=== PATIENT | male | born 1955 | race Caucasian/White ===

== ENCOUNTER 2016-06-25 08:48 | Inpatient (IN) | payer MEDICAID ==
[~2016-06-25] VITALS: Ht 182.9 cm; Wt 87.5 kg
--- NOTE | 2016-06-25 09:10 | NUR ---
60 Y/O MALE AMBULATED TO TRIAGE REPORTING STERNAL CHEST PAIN, BILATERAL AXILLARY PAIN AND HEAD THAT BEGAN THIS AM 0600. BREATHING EVEN AND UNLABORED. A/O X4. EKG COMPLETED AND SHOWN TO DR UREÑA. WAITING IN LOBBY FOR AVAILABLE BED.
--- NOTE | 2016-06-25 10:07 | NUR ---
PATIENT HERE FOR CHEST PAIN LEFT SIDED THAT STARTED THIS MORNING AT 0600 SHARP IN NATURE AND NONPROVOKED. CLAIMS PAIN UPON ARRIVAL TO ED HAS SUBSIDED. NO HX OF CHEST PAIN. NO RECENT ILLNESS. PATIENT TOOK 3 TYLENOLS THIS MORNING FOR THE PAIN. PATIENT IS ALERT AND ORIENTED UPON ARRIVAL WITH 0 S/S DISTRESS NOTED. PATIENT RECEIVED EKG IN TRIAGE. CONNECTED TO [employer]LE PRODUCERS AND DR UREÑA AT BEDSIDE FOR EVAL.
[2016-06-25 10:15] LABS: BASOPHIL % 0.5 % (0-2); PLATELET COUNT 289 x10^3mcL (130-400); RED CELL DISTRIBUTION WIDTH 13.1 % (11.5-14.5)
[2016-06-25 10:20] LABS: CALCIUM 9.2 mg/dL (8.5-10.1); CARBON DIOXIDE 28.8 mmol/L (21-32); CHLORIDE SERUM 100 mmol/L (98-107); CREATININE SERUM 0.8 mg/dL (0.7-1.3); GFR1 > 60 mL/min; GLUCOSE SERUM 190 mg/dL (74-106); POTASSIUM SERUM 4.4 mmol/L (3.5-5.1); SODIUM SERUM 137 mmol/L (136-145)
[2016-06-25 10:28] LABS: ALBUMIN 4.5 g/dL (3.4-5.0); ALKALINE PHOSPHATASE 92 U/L (46-116); ALT/SGPT 49 U/L (16-63); AST/SGOT 30 U/L (15-37); TOTAL PROTEIN, SERUM 7.9 g/dL (6.4-8.2)
[2016-06-25 10:37] LABS: AMPHETAMINE QUAL UR NONE DETECTED (NEG <=1000)
--- NOTE | 2016-06-25 11:37 | NUR ---
REPORT GIVEN TO JOSE VERDUGO ON TELE FLOOR
--- NOTE | 2016-06-25 11:37 | NUR ---
WAITING FOR DR CUEVAS WRITTEN ORDERS FOR HEPARIN IN ORDER TO GIVE. ORDER SYSTEM NOT WORKING AT THIS TIME.
--- NOTE | 2016-06-25 11:50 | NUR ---
PATIENT GIVEN [address] CUEVAS ORDER. PROTOCOL STATES [address] UREÑA FOR 5000.
--- NOTE | 2016-06-25 12:00 | NUR ---
HEPARIN BOLUS AND DRIP STARTED AND INFUSING AT THIS TIME
--- NOTE | 2016-06-25 12:29 | NUR ---
WAITING FOR TRANSFER TO TELE AT THIS TIME. PATIENT DENIES PAIN. VITALS STABLE AND 0 S/S DISTRESS NOTED
[2016-06-25 12:36] LABS: FREE T4 0.99 ng/dL (0.76-1.46); FREE THYROXINE INDEX 2.5 ug/dL (1.4-4.5); T4(THYROXINE) 8.4 ug/dL (4.7-13.3)
[2016-06-25 12:40] LABS: T3 TOTAL 1.19 ng/mL
--- NOTE | 2016-06-25 12:58 | NUR ---
RECEIVED PATIENT FROM ER AT THIS TIME. PATIENT ARRIVED VIA GURNEY, ESCORTED BY RN. PATIENT ALERT AND OX4. TELE # 11 PLACED. DENIES CHEST PAIN AT THIS TIME (0/10). ON ROOM AIR, NO RESPIRATORY DISTRESS NOTED. IV TO RAC INTACT AND PATENT. IV FLUIDS INITIATED AT 75 ML/HR. HEPARIN DRIP RESUMED AT 1080 UNITS/HR. INSTRUCTED ON USE OF CALL LIGHT. WILL CONTINUE TO MONITOR.
[2016-06-25 13:31] VITALS: BP 139/84
--- NOTE | 2016-06-25 13:51 | NUR ---
NOTIFIED DR. TORRES PATIENT HAD A SHORT RUN OF VTACH AT THIS TIME.
[2016-06-25 14:57] VITALS: BP 139/84
[2016-06-25 15:30] LABS: microscopic required? NO
[2016-06-25 15:38] LABS: UA SPECIFIC GRAVITY <=1.005 (1.005-1.035); urine erythrocyte NEGATIVE (NEGATIVE)
--- NOTE | 2016-06-25 15:46 | NUR ---
PATIENT RESTING IN BED, AWAKE AND ALERT. PATIENT STATES HE HAS MID CHEST PAIN, THAT FEELS LIKE PRESSURE 2/10. PATIENT STATES PAIN IS TOLERABLE AND DOES NOT WANT MEDICATION AT THIS TIME. TAUGHT ABOUT PAIN MANAGEMENT. FAMILY AT THE BEDSIDE. WILL CONTINUE TO MONITOR.
[2016-06-25 17:46] VITALS: BP 135/79
--- NOTE | 2016-06-25 17:55 | NUR ---
PATIENT RESTING IN BED, AWAKE, ALERT AND O X4. CHEST PAIN AT A 2/10. NO DISTRESS NOTED. HEPARIN DRIP INFUSING. FAMILY AT THE BEDSIDE.
--- NOTE | 2016-06-25 18:57 | NUR ---
PTT 29.6 ADJUSTED HEPARIN DOSE BY INCREASING INFUSION BY 360UNITS/HR. NOW INFUSING AT 1440 UNITS/HR. REBOULUS OF 5400 UNITS IVP. VERIFIED BY JOSE BALDWIN.
--- NOTE | 2016-06-25 19:59 | NUR ---
Awake and verbally responsive. No resp.distress noted. Denies pain at this time. Normal sinus rhythm. Heparin drip @ 1440units/hr infusing. Will cont.to monitor. Call light within reach. Family visiting.
[2016-06-25 21:15] VITALS: BP 117/80
--- NOTE | 2016-06-25 23:46 | NUR ---
Recalculated heparin drip protocol followed. PTT-44.1 rebolus with 3600units heparin. Increased infusion by 200units/hr. Heparin drip @ 1600units/hr infusing at this time. Will recheck PTT after 4hrs.
[2016-06-26 04:04] LABS: PLATELET COUNT 256 x10^3mcL (130-400); RED CELL DISTRIBUTION WIDTH 12.2 % (11.5-14.5)
[2016-06-26 04:11] LABS: BASOPHIL % 3.2 % (0-2)
--- NOTE | 2016-06-26 04:18 | NUR ---
Afebrile. No SOB noted. Denies chest pain. Cont.on heparin drip. In no apparent distress.
[2016-06-26 04:27] LABS: CALCIUM 8.5 mg/dL (8.5-10.1); CARBON DIOXIDE 24.2 mmol/L (21-32); CHLORIDE SERUM 106 mmol/L (98-107); CREATININE SERUM 0.6 mg/dL (0.7-1.3); GFR1 > 60 mL/min; GLUCOSE SERUM 146 mg/dL (74-106); MAGNESIUM 1.9 mg/dL (1.8-2.4); PHOSPHOROUS 4.3 mg/dL (2.5-4.9); POTASSIUM SERUM 3.7 mmol/L (3.5-5.1); SODIUM SERUM 140 mmol/L (136-145)
--- NOTE | 2016-06-26 04:43 | NUR ---
PTT-49.7. No change per protocol. Remained on heparin drip @ 1600 units/hr. Will recheck PTT @ 0800hrs.
[2016-06-26 05:44] VITALS: BP 111/65
--- NOTE | 2016-06-26 07:20 | NUR ---
RECEIVED REPORT FROM KAYLIN RN AT THIS TIME. PATEINT RESTING IN BED WITH EYES CLOSED. ON ROOM AIR, NO DISTRESS NOTED. TELE # [address] HR 79. HEPARIN DRIP INFUSING 1600 UNITS/HR. IV INFUSING NS AT 75ML/HR. WILL CONTINUE TO MONITOR.
--- NOTE | 2016-06-26 08:30 | NUR ---
NOTIFIED DR. TORRES WBC 12.8 AT THIS TIME.
--- NOTE | 2016-06-26 09:04 | NUR ---
BP 107/63 HR 70 MAP 77. OK TO HOLD METOPROLOL 25MG AND GIVE LISINOPRIL 10MG AT THIS TIME (SEE EMAR) PER DR. TORRES.
[2016-06-26 09:15] VITALS: BP 107/63
--- NOTE | 2016-06-26 10:08 | NUR ---
PTT 44.3, REBOLLUSED WITH 3,600 UNITS OF HEPARIN AND INCREASED INFUSION BY 200 UNITS/HR. HEPARIN INFUSION NOW 1800 UNITS/HR.
--- NOTE | 2016-06-26 12:00 | NUR ---
PATIENT AMBULATING AT THIS TIME. STEADY GAIT. TOLERATING ACTIVITY WELL. INSTRUCTED TO STOP IF HE FEELS TIRED OR SOB. WILL CONTINUE TO MONITOR.
[2016-06-26 13:56] VITALS: BP 98/51
--- NOTE | 2016-06-26 14:26 | NUR ---
DR. QUISPE IN TO SEE PATIENT AND DISCUSS PLAN OF CARE. QUESTIONS AND CONCERNS ADDRESSED. WILL CONTINUE TO MONITOR.
--- NOTE | 2016-06-26 14:30 | NUR ---
PTT RECEIVED 65.3. NO CHANGES MADE TO HEPARIN DRIP. INFUSING AT 1800 UNITS/HR. ORDRED PTT FOR 1829.
--- NOTE | 2016-06-26 17:30 | NUR ---
PATIENT RESTING IN BED AWAKE, ALERT AND OX4. TAUGHT ABOUT DIABETES AT THIS TIME. PATIENT VERBALIZES UNDERSTANDING. PATIENT DENIES CHEST PAIN, 0/10. WILL CONTINUE TO MONITOR.
[2016-06-26 18:04] VITALS: BP 109/63
--- NOTE | 2016-06-26 19:30 | NUR ---
ALERT AND ORIENTED. PLEASANT AND COOPERATIVE. FAMILY AT BEDSIDE. STILL HAS HEPARIN GTT AT 1800 UNITS PER HOUR INFUSING WELL IN THE RIGHT AC. PATENT AND INTACT. LAST PTT OBTAINED NOTED THERAPEUTIC. DENIES ANY CHEST PAIN. TROPONIN IS STILL TRENDING UP. WITH BATHROOM PRIVILEGES. SKIN IS INTACT. PT MADE AWARE OF THE ANGIOCATH PROCEDURE AT 1330 PM TOMORROW 06/27/16. LUNG SOUNDS CLEAR ON AUSCULTATIONS BILATERALLY UPPER AND LOWER BASES. BOWEL SOUNDS ACTIVE AND PRESENT. LBM TODAY. STILL HAS 75 ML PER HOUR INFUSING RIGHT AC. PATENT AND INTACT. WILL CONTINUE TO MONITOR.
--- NOTE | 2016-06-26 19:32 | NUR ---
RECEIVED AND OBTAINED PTT THERAPEUTIC REPORT 60.9. NOTED THIS IS THE SECOND THERAPEUTIC RESULT OF PTT WITH HEPARIN DRIP. NEXT PTT IS IN THE MORNING AT 0500 06/27/16.WILL MONITOR. HEPARIN GTT IS INFUSING AT 1800 UNITS PER HOUR INFUSING.
[2016-06-26 22:00] VITALS: BP 116/64
--- NOTE | 2016-06-27 05:26 | NUR ---
STILL RESTING. IV NS AT 75 ML PER HOUR INFUSING WELL. MADE COMFORATBLE IN BED. PT IS NPO AFTER BREAKSFAT. FOR THE ANGIO THIS AFTERNOON. STILL HAS HEPARIN GTT AT 1800 UNITS PER HOUR INFUSING WELL. MADE COMFORTABLE IN BED.
[2016-06-27 06:04] LABS: BASOPHIL % 0.5 % (0-2); PLATELET COUNT 237 x10^3mcL (130-400); RED CELL DISTRIBUTION WIDTH 13.1 % (11.5-14.5)
[2016-06-27 06:23] LABS: CALCIUM 8.3 mg/dL (8.5-10.1); CARBON DIOXIDE 23.9 mmol/L (21-32); CHLORIDE SERUM 107 mmol/L (98-107); CREATININE SERUM 0.7 mg/dL (0.7-1.3); GFR1 > 60 mL/min; GLUCOSE SERUM 145 mg/dL (74-106); MAGNESIUM 1.9 mg/dL (1.8-2.4); PHOSPHOROUS 4.1 mg/dL (2.5-4.9); POTASSIUM SERUM 3.7 mmol/L (3.5-5.1); SODIUM SERUM 141 mmol/L (136-145)
[2016-06-27 07:17] VITALS: BP 119/67
--- NOTE | 2016-06-27 07:42 | NUR ---
RECEIVED PATIENT AAOX4, ABLE TO COMMUNICATE AND FOLLOW COMMANDS, NO DISTRESS NOTED, DENIES CHEST PAIN AND TELE# [address] PALPABLE PULSES TO BUE/BLE. ON ROOM AIR, DENIE SOB, AND RESPIRAITONS EVEN AND UNLABORED. DENIES N/V/D. VOIDS FREELY WITH BRP AND UP WITH MINIMAL ASSIST. DENIES PAIN. IV TO RAC INFUSINGS NS AT 75ML/HR FREELY, AND HEPARIN DRIP INFUSING AT 1800UNITS/HR HER PROTOCOL, PTT CAME BACK 60.9, NO CHANGE, AND ORDERED NEXT PTT FOR 0500 06/28/16. BED TO LOWEST POSITION, SIDE RAILS UP X2, CALL LIGHT AND BELONGINGS WITHIN REACH, AND WILL CONTINUE TO MONITOR.
--- NOTE | 2016-06-27 08:40 | NUR ---
ROUNDS MADE BY , RESIDENTS, AND MEDICAL STAFF AT [facility], PATIENTS CARDIAC CATHETERIZATION WAS CANCELLED TODAY AND WILL BE DONE ON THURSDAY, ALL QUESTIONS AND CONCERNS ADDRESSED, CALL LIGHT AND BELONGIGNS WITHIN REACH, AND WILL CONTINUE TO MONITOR.
--- NOTE | 2016-06-27 08:59 | NUR ---
PATEINT AAOX4, SITTING UP IN BED, D/C IVF PER DOCTORS ORDERS, HEPRIN DRIP INFUSING AT 1800UNITS/HR FREELY PER PROTOCOL, CALL LIGHT AND BELONGINGS WITHIN REACH, ADN WILL CONTINUE TO MONITOR.
[2016-06-27 09:24] VITALS: BP 107/62
[2016-06-27 14:22] VITALS: BP 100/59
--- NOTE | 2016-06-27 17:00 | NUR ---
D/C HEPARIN DRIP PER ORDER, WILL CONTINUE TO MONITOR.
--- NOTE | 2016-06-27 17:30 | NUR ---
SAID TO PLACE COMMUNICATION ORDER DAY OF CARDIAC CATHETERIZATION FOR NPO AFTER FULL LIQUID BREAKFAST FOR Thursday06/30/16, WILL FOLLOW ORDER AND CONTINUE TO MONITOR.
[2016-06-27 17:40] VITALS: BP 129/77
--- NOTE | 2016-06-27 18:50 | NUR ---
PATIENT AAOX4, TAKING TO FAMILY AT BEDSIDE, NO DISTRESS NOTED, DENIES CHEST PAIN, SALINE LOCK TO RAC CDI, CALL LIGHT AND BELONGINGS WITHIN REACH, AND WILL ENDORSE TO NIGHT NURSE.
--- NOTE | 2016-06-27 19:15 | NUR ---
SEEN IN BED AWAKE, ALERT, ORIENTED X4. NO SOB OR ANY DISTRESS NOTED ON ROOM AIR. DENIES CHEST PAIN. NSR AT 63 ON TELE MONITOR# 11. LUNG SOUND CTA. S/L TO RT AC. ON PLAVIX PO. STATES ABLE TO AMBULATE WITHOUT ANY DIFFICULTY. PLAN OF CARE DISCUSSED. CALL LIGHT PLACED WITHIN REACH. SIDERIALS UP X2.
[2016-06-27 21:07] VITALS: BP 119/74
[2016-06-28 05:40] VITALS: BP 99/59
[2016-06-28 06:22] LABS: BASOPHIL % 0.4 % (0-2); PLATELET COUNT 242 x10^3mcL (130-400); RED CELL DISTRIBUTION WIDTH 12.7 % (11.5-14.5)
[2016-06-28 06:36] LABS: CALCIUM 8.7 mg/dL (8.5-10.1); CARBON DIOXIDE 26.8 mmol/L (21-32); CHLORIDE SERUM 105 mmol/L (98-107); CREATININE SERUM 0.7 mg/dL (0.7-1.3); GFR1 > 60 mL/min; GLUCOSE SERUM 130 mg/dL (74-106); MAGNESIUM 1.9 mg/dL (1.8-2.4); PHOSPHOROUS 4.2 mg/dL (2.5-4.9); POTASSIUM SERUM 3.6 mmol/L (3.5-5.1); SODIUM SERUM 141 mmol/L (136-145)
--- NOTE | 2016-06-28 07:02 | NUR ---
NO COMPLAINTS OF CHEST PAIN THROUGHOUT THE SHIFT. VSS. AMBULATORY.
--- NOTE | 2016-06-28 07:45 | NUR ---
PATIENT AOX4, DENIES HEADACHE. TELE 11, DENIES CP AT THIS TIME. LUNGS CTA, NO RESP DISTRESS ON RA. PERIPHERAL PULSES PALPABLE, NO EDEMA NTOED. BOWEL SOUNDS ACTIVE, LAST BM STATED YESTERDAY NORMAL. DENIES GI DISCOMFORT. SKIN INTACT, NO BRUISING. IV ACCESS TO RAC, SITE WNL. DENIES PAIN/DISCOMFORT AT THIS TIME. CALL LIGHT WITHIN REACH.
[2016-06-28 08:23] VITALS: BP 110/67
[2016-06-28 14:00] VITALS: BP 105/73
[2016-06-28 17:09] VITALS: BP 124/68
--- NOTE | 2016-06-28 19:25 | NUR ---
RCVD REPORT FROM JOSE MCDERMOTT. PATIENT IS IN STABLE CONDITION. ALERT AND ORIENTED X4. FAMILY AT BEDSIDE. NO COMPLAINTS OF PAIN. NO S/SX OF DISTRESS NOTED. IV IS PATENT. NO INFILTRATION NOTED. CALL LIGHT WITHIN REACH. WILL CONTINUE TO MONITOR
[2016-06-28 21:32] VITALS: BP 127/71
[2016-06-29 05:47] LABS: BASOPHIL % 0.5 % (0-2); PLATELET COUNT 243 x10^3mcL (130-400); RED CELL DISTRIBUTION WIDTH 12.6 % (11.5-14.5)
[2016-06-29 05:51] VITALS: BP 114/66
[2016-06-29 05:59] LABS: CALCIUM 8.9 mg/dL (8.5-10.1); CARBON DIOXIDE 23.8 mmol/L (21-32); CHLORIDE SERUM 105 mmol/L (98-107); CREATININE SERUM 0.7 mg/dL (0.7-1.3); GFR1 > 60 mL/min; GLUCOSE SERUM 127 mg/dL (74-106); MAGNESIUM 1.8 mg/dL (1.8-2.4); PHOSPHOROUS 4.1 mg/dL (2.5-4.9); POTASSIUM SERUM 3.8 mmol/L (3.5-5.1); SODIUM SERUM 141 mmol/L (136-145)
--- NOTE | 2016-06-29 06:28 | NUR ---
PATIENT IS AWAKE AND ALERT. NO S/SX OF DISTRESS NOTED. DENIES CHEST PAIN. IV IS PATENT. NO INFILTRATION NOTED. ENDORSE ORDERS TO AM RN. CALL LIGHT WITHIN REACH. WILL CONT TO MONITOR
--- NOTE | 2016-06-29 07:15 | NUR ---
RECEIVED PATIENT AAOX4, ABLE TO COMMUNICATE AND FOLLOW COMMANDS, NO DISTRESS NOTED, TELE# [address] AND DENIES CHEST PAIN. PALPABLE PULSES TO BUE/BLE. ON ROOM AIR, DENIES SOB, AND RESPIRATIONS EVEN AND UNLABORED. DENIES N/V/D. VOIDS FREELY WITH BRP AND UP WITH MINIMAL ASSIST. DENIES PAIN. SALINE LOCK TO RAC CDI AND FLUSHES WELL. CALL LIGHT AND BELONGINGS WITHIN REACH, AND WILL CONTINUE TO MONITOR.
--- NOTE | 2016-06-29 08:40 | NUR ---
ROUNDS MADE BY , RESIDENTS, AND MEDICAL STAFF AT BEDSIDE, PATIENT WILL BE HAVING CARDIAC CATHETERIZATION TOMORROW, ALL QUESTIONS AND CONCERNS ADDRESSED, CALL LIGHT AND BELONGINGS WITHIN REACH, AND WILL CONTINUE TO MONITOR.
[2016-06-29 10:23] VITALS: BP 108/73
--- NOTE | 2016-06-29 14:54 | NUR ---
PATIENT SITTING UP IN BED AAOX4, TAKING TO FAMILY MEMEBERS AT BEDSIDE, PATIENT C/O ACHING PAIN ALL OVER BACK 08/13, NORCO 7.5/325 TAB PO Q4H PRN GIVEN FOR BACK PAIN, NO DISTRESS NOTED, RESPIRAITONS EVEN AND UNLABORED, CALL LIGHT AND BELONGINGS WITHIN REACH, AND WILL CONTINUE TO MONITOR.
[2016-06-29 16:56] VITALS: Ht 182.9 cm; Wt 87.5 kg
--- NOTE | 2016-06-29 18:55 | NUR ---
PATIENT SITTING UP IN BED AAOX4, NO DISTRESS NOTED, DENIES CHEST PAIN, RESPIRATIONS EVEN AND UNLABORED, DENIES PAIN, IV TO RAC CDI, CALL LIGHT AND BELONGINGS WITHIN REACH, AND WILL ENDORSE TO NIGHT NURSE
[2016-06-29 18:56] VITALS: BP 119/67
--- NOTE | 2016-06-29 20:00 | NUR ---
RCVD REPORT FROM JOSE MURPHY. PATIENT IS IN STABLE CONDITION. NO S/SX OF DISTRESS NOTED. IV IS PATENT. SALINE LOCKED AT THIS TIME. DENIES PAIN AT THIS TIME. CALL LIGHT WITHIN REACH. WILL CONTINUE TO MONITOR
--- NOTE | 2016-06-29 20:52 | NUR ---
DR QUISPE SAW PATIENT. STATED CONTINUE WITH PLAVIX AND METFORMIN IN THE AM. PATIENT WILL BE NPO AFTER FULL LIQUID BREAKFAST DIET IN THE AM. CARDIAC CATH WILL BE DONE AROUND 1330 TOMORROW.
[2016-06-29 21:30] VITALS: BP 105/72
[2016-06-30] VITALS (7 sets, daily range): BP systolic 104–168; BP diastolic 60–77
--- NOTE | 2016-06-30 01:39 | NUR ---
RESUMED CARE FROM NURSE LANE. SEEN PATIENT ASLEEP. NO ACUTE DISTRESS NOTED. BREATHING EASY ON ROOM AIR. NSR AT 60 WITH DEPRESSED T WAVE ON THE TELE MONITOR#11.
[2016-06-30 06:30] LABS: BASOPHIL % 0.4 % (0-2); PLATELET COUNT 242 x10^3mcL (130-400)
[2016-06-30 06:51] LABS: CHLORIDE SERUM 105 mmol/L (98-107); CREATININE SERUM 0.7 mg/dL (0.7-1.3); GFR1 > 60 mL/min; GLUCOSE SERUM 135 mg/dL (74-106); MAGNESIUM 1.9 mg/dL (1.8-2.4); PHOSPHOROUS 4.4 mg/dL (2.5-4.9); POTASSIUM SERUM 3.9 mmol/L (3.5-5.1); SODIUM SERUM 139 mmol/L (136-145)
--- NOTE | 2016-06-30 07:00 | NUR ---
NO ACUTE DISTRESS THROUGHOUT THE SHIFT. STS MILD EPIGASTRIC AREA PAIN, PROTONIX GIVEN THIS AM. MADE AWARE OF PROCEDURE TODAY AT 1330HRS AND NPO AFTER LIGHT BREAKFAST.
--- NOTE | 2016-06-30 07:45 | NUR ---
PATIENT AOX4, DENIES HEADACHE. TELE 11, DENIES CP, S1S2 PRESENT. 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 LUNGS CTA, NO RESP DISTRESS NOTED ON RA. BOWEL SOUNDS ACTIVE, LAST BM STATED YESTERDAY DENIES DIARRHEA. DENIES N/V. SKIN INTACT. IV ACCESS TO RAC RUNNING SL, SITE WNL. CALL LIGHT WITHIN REACH. DENIES PAIN/DISCOMFORT AT THIS TIME.
--- NOTE | 2016-06-30 11:00 | NUR ---
[facility] (CARDIO DEPT) AT BEDSIDE GIVING INSTRUCTIONS FOR POSTOP CARDIAC CATH CARE. WILL AUTO BODY TECHNICIAN PATIENT AROUND 1PM FOR SCHEDULED PROCEDURE.
--- NOTE | 2016-06-30 12:20 | NUR ---
NEW IV STARTED TO LFA 20G, 15CC NS FLUSHED, NO REDNESS/SWELLING TO SITE, PATIENT DENIES DISCOMFORT, TOELRATED WELL. DRESSINGS TO RAC IV SITE CHANGED, IV PATENT. PREOP CHG WIPES GIVEN TO PATIENT.
--- NOTE | 2016-06-30 13:00 | NUR ---
PATIENT WENT DOWN VIA BED TO DISASTER RECOVERY SPECIALIST FOR CARDIAC CATH PROCEDURE.
--- NOTE | 2016-06-30 14:35 | NUR ---
REC'D AOX4, SPEECH CLEAR. VSS. DENIES PAIN. NOTED TR BAND TO RW WITH 15ML AIR. REC'D ORDER TO WITHDRAW HALF AT 1620 AND ASSESS FOR BLEEDING. PROVIDED REPORT OT BALDEMAR GARCIA
--- NOTE | 2016-06-30 15:15 | NUR ---
V/S RECHECKED, CHARTED. PATIENT DENIES HEADACHE. DENIES PAIN. DENIES NUMBNESS/TINGLING. ABLE TO MOVE ALL EXTREMITIES AND DIGITS. TR BAND IN PLACE TO RT WRIST. REMINDED ON STRICT BEDREST, VERBALIZED UNDERSTANDING. NO SIGN OF DISTRESS NOTED AT THIS TIME. WILL CONT TO MONITOR.
--- NOTE | 2016-06-30 16:05 | NUR ---
DR TORRES WAS AT BEDSIDE. PATIENT HAS PANTS AND SHOES, LAYING ON BED. REINFORCED NOT TO GET UP, VERBALIZED UNDERSTANING. VITAL SIGNS RECHECKED AND CHARTED.
--- NOTE | 2016-06-30 16:30 | NUR ---
HALF OF AIR PRESSURE IN TR BAND RELEASED, NO BLEEDING NOTED. WILL CONT TO MONITOR.
--- NOTE | 2016-06-30 16:50 | NUR ---
REMAINING HALF OF AIR PRESSURE ON TR BAND RELEASED. NO BLEEDING ON SITE OBSERVED. WILL CONT TO MONITOR.
--- NOTE | 2016-06-30 17:47 | NUR ---
WRIST BOARD IN PLACE TO RT WRIST, INSTRUCTED PATIENT NOT TO REMOVE FOR 24 [address] UND[address]STANDING. [address] TORRES SPOKE WITH FAMILY AND PATIENT REGARDING PATIENT REQUIRING HIGHER LOC FOR FURTHER CARDIAC TREATMENT WITH STENT, INFORMED THAT IT IS NOT GAURANTEED WHEN PATIENT WILL BE ABLE TO BE TRANSFERRED TO HIGHER LOC. FAMILY EXPRESSES PREFERRENCE TO TAKE PATIENT TO HIGHER LOC PRIVATELY AND SIGN AMA. RISKS/BENEFITS EXPLAINED, FAMILY AND PATIENT VERBALIZED UNDERSTANDING. AMA FORM SIGNED. 2 IVS DC'D, CATH INTACT. TELE RETURNED TO TECH STATION. PATIENT LEFT VIA WHEELCHAIR.
== END 2016-06-30 17:51 | disposition left against medical advice (07) | DRG 192 ==
LOC: ED 08:48 → DU 11:03
PROVIDERS: Emergency Medicine; Family Medicine; ADMIT Family Medicine
PROC: 4A023N7 Measurement of Cardiac Sampling and Pressure, Left Heart, Percutaneous Approach (ICD-10-PCS; principal; 2016-06-25)
PROC: B211YZZ Fluoroscopy of Multiple Coronary Arteries using Other Contrast (ICD-10-PCS; 2016-06-25)
PROC: B215YZZ Fluoroscopy of Left Heart using Other Contrast (ICD-10-PCS; 2016-06-25)
DX: I25.110 Atherosclerotic heart disease of native coronary artery with unstable angina pectoris (principal); N17.0 Acute kidney failure with tubular necrosis; E11.65 Type 2 diabetes mellitus with hyperglycemia; E11.51 Type 2 diabetes mellitus with diabetic peripheral angiopathy without gangrene; D68.69 Other thrombophilia; M94.0 Chondrocostal junction syndrome [Tietze]; I10 Essential (primary) hypertension; E02 Subclinical iodine-deficiency hypothyroidism; E78.5 Hyperlipidemia, unspecified; Z68.26 Body mass index [BMI] 26.0-26.9, adult; Z79.84 Long term (current) use of oral hypoglycemic drugs
CPT/HCPCS: CLHCL; 80307; 83880; 84439; 90658; 90732; C1769; C1887; C1894; J1644; J2001; J3010; J3490; J7030; J7050; Q0092; Q9967